=== PATIENT | male | born 1995 | race American Indian/Alaskan Native ===

== ENCOUNTER 2018-09-13 01:46 | Emergency (ER) | payer OTHER ==
[2018-09-13 01:59] VITALS: BP 152/67; PULSE 84; RESP 16; TEMP 99.5; O2SAT 97
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
== END 2018-09-13 02:57 | disposition home or self-care (01) ==
LOC: C.ER 01:46
DX: M25.561 Pain in right knee (principal); V89.2XXA Person injured in unspecified motor-vehicle accident, traffic, initial encounter